=== PATIENT | female | born 1960 | race Caucasian/White ===

== ENCOUNTER 2022-08-19 22:58 | Emergency (ER) | payer OTHER | END 2022-08-20 01:02 | disposition left against medical advice (07) | LOC: ER1 22:58 | DX: G89.18 Other acute postprocedural pain (principal); S81.801A Unspecified open wound, right lower leg, initial encounter; I10 Essential (primary) hypertension; F17.210 Nicotine dependence, cigarettes, uncomplicated; X58.XXXA Exposure to other specified factors, initial encounter | CPT/HCPCS: 99283 ==